=== PATIENT | male | born 1980 | race Caucasian/White ===

== ENCOUNTER 2025-05-05 14:57 | Emergency (ER) | payer OTHER, SELFPAY ==
[2025-05-05 15:11] VITALS: BP 176/98; PULSE 106; RESP 16; TEMP 36.2; O2SAT 98
[2025-05-05 15:20] LABS: EDSTREPNEGPOS1 Negative (Negative)
--- NOTE | 2025-05-05 15:28 | ED.URI ---
HPI - URI/Sore Throat General Chief Complaint: Upper Respiratory Infection Stated Complaint: Sore Throat Time Seen by Provider: 05/05/25 15:18 Source: patient and RN notes reviewed Mode of arrival: ambulatory Limitations: no limitations History of Present Illness HPI Narrative: Patient presents today complaining of sore and swollen throat since yesterday with left-sided pain. Pain increases with swelling. Denies shortness of breath or fever. Currently rates his pain 8/10 and has tried ibuprofen and liquid Vicks without much relief. Patient works in an [employer] in the kitchen. Related Data Home Medications ?Medication ?Instructions ?Recorded ?Confirmed ?Last Taken ?Type No Home Medications 05/05/25 05/05/25 Unknown History Allergies Allergy/AdvReac Type Severity Reaction Status Date / Time amoxicillin Allergy Intermediate Hives Verified 05/05/25 15:07 Review of Systems Review of Systems: CONSTITUTIONAL: Denies body aches, fever, chills, or sweats. EYES: Denies visual changes, redness, or discharge. ENT: Denies rhinorrhea, congestion, or otalgia.+ sore throat CARDIOVASCULAR: Denies chest pain, palpitations, or edema. RESPIRATORY: Denies cough or dyspnea. GASTROINTESTINAL: Denies abdominal pain, nausea, vomiting, or diarrhea. GENITOURINARY: Denies dysuria or hematuria. SKIN: Denies rash, itching, or wounds. MUSCULOSKELETAL: Denies back pain, joint pain, or myalgia. NEUROLOGIC: Denies headache, numbness, tingling, or weakness. PSYCH: Denies depression or anxiety. PMFSH Comments At time of signature, I have reviewed and agree with nursing past medical, surgical, social and family history unless otherwise noted. Please see nursing chart for further information. There is no relevant family history pertinent to the presenting complaint Exam Narrative: GENERAL: Well-appearing, well-nourished, and in no acute distress. HEAD: Normocephalic, atraumatic. EYES: EOMI. No redness or drainage. Conjunctivae normal. ENT: Mucous membranes pink and moist. Nares clear. No rhinorrhea. TMs normal bilaterally. Throat is mildly erythematous. Bilateral tonsils are 2 to 3+ without exudate. Uvula midline. NECK: Normal AROM. Supple. No lymphadenopathy. CHEST: No respiratory distress. Clear to auscultation. HEART: Regular rate and rhythm. No murmur appreciated. EXTREMITIES: Normal range of motion. No edema. SKIN: Warm, dry, no rash. Capillary refill normal. Normal skin turgor. NEURO: No focal deficits. Alert and oriented x3. Gait steady. PSYCH: Normal affect. No signs of depression or anxiety. Course Course Level of Care: Express Care Visit Vital Signs Vital signs: Vital Signs Temperature 97.1 F L 05/05/25 15:11 Pulse Rate 106 H 05/05/25 15:11 Respiratory Rate 16 05/05/25 15:11 Blood Pressure 176/98 H 05/05/25 15:11 Pulse Oximetry 98 05/05/25 15:11 Oxygen Delivery Room Air 05/05/25 15:11 Temperature 97.1 F L 05/05/25 15:11 Pulse Rate 106 H 05/05/25 15:11 Respiratory Rate 16 05/05/25 15:11 Blood Pressure 176/98 H 05/05/25 15:11 Pulse Oximetry 98 05/05/25 15:11 Oxygen Delivery Room Air 05/05/25 15:11 Reviewed MDM - URI/Sore Throat MDM Narrative Medical decision making narrative: Rapid strep negative. Culture pending. Symptoms likely viral in etiology. Discussed [id number] medication use and duration of illness. No prescription medications indicated at this time. Anticipatory guidance given. Differential Diagnosis Differential diagnosis: Likely upper respiratory infection, otitis media, viral infection, pharyngitis and other (Strep throat) Lab Data Attestation: I reviewed the patient's lab results. Labs: Lab Results 05/05/25 Range/Units 15:18 POC Grp A Strep Screen Negative (Negative) Critical Care Time Critical Care Time Critical Care Time: No Discharge Plan Discharge Clinical Impression: Pharyngitis Qualifiers: Pharyngitis/tonsillitis etiology: unspecified etiology Qualified Code(s): J02.9 - Acute pharyngitis, unspecified Patient Disposition: Home Condition: Stable Instructions: Pharyngitis (ED) Additional Instructions: Your rapid strep swab was negative today at [facility]. You will be notified in a few days if the culture comes back positive for strep, and appropriate antibiotics will be called in for you at that time. Your symptoms are likely due to a viral illness, which is not treated with antibiotics. Viral symptoms can be present for up to 7-10 days. Take Tylenol or ibuprofen for fever or pain. Rest and stay hydrated. Follow up with your PCP in 10 days if symptoms are not improving. Go to the ER immediately if you have any difficulty breathing or swallowing. Your blood pressure was elevated above 120/80 today at Urgent Care. This puts you above the threshold for follow up. Please schedule a followup visit with your personal physician as soon as possible, for further evaluation and treatment. Even blood pressure exceeding 120/80 may indicate pre-hypertension. Patient Language: Taiwanese Prescriptions: No Action No Home Medications Follow-up/Referrals: PHYSICIAN,BUILDING MANAGER [Primary Care Provider] - Stand Alone Forms: Work/School Release IP Time of Disposition: 15:32
--- OUTSIDE RECORDS SUMMARY | 2025-05-05 16:50 | XMS_ITS | Data Portability ---
[facility] [address] [place] [address] Assessment No assessment recorded. Plan of Treatment Reminders Order Date Submit Date Provider Last Modified By Organization Details Last Modified Time Details Appointments None recorded. Lab None recorded. Referral None recorded. Procedures None recorded. Surgeries None recorded. Imaging None recorded. Medication Orders metronidaz ole 500 mg tablet 2016 017 INTERFACE [id number], [address] , [place], [place], [id number], 7 11:40:27 Patient TargetsNo targets recorded. Patient Instructions Encounter Date Encounter Id Patient Instructions Last Modified By Organization Details Last Modified Time 04/10/2017 [id number] trichomoniasis: care instructions [email or web address] Not available 04/10/2017 13:05:31 Reason for Referral None Reported. Medical Equipment None Reported. Allergies Allergen ID Allergen Name Allergen Category Reaction Reaction Severity Criticality Documentation Date Start Date Code Code System Note Provider Name and Address Organization Details Recorded Time 80760 Amoxil medicatio n hives severe Not available 04/10/201795214 9 RxNorm Christa Palmer [facility], [facility] 7 11:18:03 Medications Name Sig Start Date Stop Date Status Note LastModified by Organization Details LastModified Time ibuprofen 800 mg tablet 04/10 completed Not Available Not Available Not Available metronidazole 500 mg tablet Take 1 tablet every 8 hours by oral route for 10 days. 2016 active Not Available Not Available Not Avai lable cephalexin 500 mg capsule 04/10 completed Not Available Not Available Not Available Vitals Date Recorded Body weight Body height Body mass index (BMI) Oxygen saturation Oxygen saturation in Arterial blood by Pulse oximetry Heart rate Systolic blood pressure Diastolic blood pressure Provider Name and Address Organization Details Last Updated DateTime 7 401105. 28 g 185.42 cm 35.8 kg/m2 100 % 100 % 93 /min 142 mm[Hg] 104 mm[Hg] Christa Palmer MA [facility] 7 11:25:45 Social History Question Answer Notes LastModified by Organizat ion Details LastModified Time Tobacco Smoking Status Current Every Day Smoker Christa Palmer MA [place], [facility] 04/10/2017 11:19:18 How Much Tobacco Do You Smoke? 1 PPD Information not available 04/10/2017 How Many Years Have You Smoked Tobacco? 20 Information not available 04/10/2017 Sex: Unknown Functional Status None recorded. Mental Status None recorded. Family History Relationship Description Onset Age of this Age Resolved Age Notes LastModified by Organization Details LastModified Time Mother Asthma [email or web address] Not availabl e 04/10/2017 11:18:21 Mother Hypertensive disorder [email or web address] Not available 03/19 11:19:06 Brother Attention deficit hyperactivit y disorder [email or web address] Not available 11:18:34 Sister Attention deficit hyperactivit y disorder [email or web address] Not available 11:18:41 Medical History No medical history recorded. Immunizations Vaccine Type Date Status Note Provider Nam e and Address Organization Details Recorded Time tetanus toxoid, unspecified formulation 11/18/2002 completed Christa Palmer MA [place], [facility] 04/10/2017 11:20:29 Past Encounters Encounter ID Performer Location Encounter Start Date Encounter Closed Date Diagnosis/Indication Diagnosis SNOMED-CT Code Diagnosis ICD10 Code Diagnosis Note [id number] Jeison Yeager MD [facility] [address] [place] [address] 04/10/2017 10:56:24 04/10/2017 12:13:44 Infection by Trichomonas [id number] A59.9 Health Concerns Section Related Observation LastModified by Organization Detai ls LastModified Time None Recorded Concern Status LastModified by Organization Details LastModified Time None Recorded Advance Directives Directive None Recorded Payers Insurance Date Sequence Insurance Name Policy Number Policy Joshua Covered Member ID Joshua Member ID Guarantor Name 04/10/2017 SLIDING FEE SCHEDULE - DISCOUNT Aditya Collman 04/10/2017 1 *SELF PAY* Juan cancholakatt Edwards 08/05/2017 [facility] (MEDICAID HMO) [id number] Aditya Edwards [id number] Aditya Edwards Notes Date Note Type Note Provider Name and Address Organization Details Recorded Time 04/10/2017 text/html reports monogamy with . he reports he has been monogamous to her and celebate for 3 years. Gerard Guevara PA-C Attn: Accounting,[address] [place], [address], [facility] 04/10/2017 11:41:53
== END 2025-05-05 15:42 | disposition home or self-care (01) ==
PROVIDERS: Emergency Provider Nurse Practitioner
DX: J02.9 Acute pharyngitis, unspecified (principal)
CPT/HCPCS: 87081; 87880; 99203; G0463